=== PATIENT | female | born 1945 | race Caucasian/White ===

== ENCOUNTER 2017-02-26 10:09 | Outpatient (CLI) | payer MEDICARE, OTHER ==
[2017-02-26 19:21] LABS: ALBUMIN/GLOBULIN RATIO 1.8 (1.0-2.2); BILIRUBIN,TOTAL 1.1 mg/dL (0.2-1.0); CALCIUM 9.9 mg/dL (8.5-10.3); CREATININE 0.6 mg/dL (0.4-1.0); POTASSIUM 4.2 mmol/L (3.5-5.0); TOTAL PROTEIN 7.2 g/dL (6.7-8.2)
[2017-02-26 20:48] LABS: HEMOGLOBIN A1C 0.52 g/dL
== END 2017-02-26 10:10 | disposition home or self-care (01) ==
LOC: LAB.F 10:09
PROVIDERS: ATTEND Physician Assistant Medical
DX: I10 Essential (primary) hypertension (principal); E11.9 Type 2 diabetes mellitus without complications
CPT/HCPCS: 36415; 80053; 83036

== ENCOUNTER 2018-03-09 06:38 | Emergency (ER) | payer MEDICARE, OTHER ==
[2018-03-09 06:46] VITALS: BP 183/75
[2018-03-09 07:09] LABS: BILIRUBIN,URINE NEGATIVE (NEGATIVE); GLUCOSE, URINE (UA) NEGATIVE (NEGATIVE); KETONES,URINE (UA) NEGATIVE (NEGATIVE); LEUKOCYTE ESTERASE, URINE TRACE (NEGATIVE); NITRITE,URINE NEGATIVE (NEGATIVE); OCCULT BLOOD,URINE LARGE (NEGATIVE); PH,URINE 6.5 PH (5.0-7.5); PROTEIN,URINE >=300 mg/dL (NEGATIVE); UROBILINOGEN,URINE 1 (NORMAL) E.U./dL (NORMAL)
[2018-03-09 07:24] LABS: CLARITY,URINE SL. CLOUDY (CLEAR)
--- NOTE | 2018-03-09 07:26 | ED Physician Documentation ---
History of Present Illness - Stated complaint Stated Complaint: FEMALE - Chief complaint Chief Complaint: Abd Pain - Additonal information Additional information: 72 female to ED with dysuria urgency and hemturia with clots able to urinate no vag or rectal bleed no fever chills no NV no abd pain no flank pain atenolol lisinopril HCTZ statin asa metformin prior surgery childbirth and D&C Review of Systems Constitutional: denies: Fever, Chills Cardiac: denies: Chest pain / pressure Respiratory: denies: Dyspnea GI: denies: Abdominal Pain, Nausea, Vomiting, Bloody / black stool : reports: Hematuria. denies: Dysuria, Frequency, Vaginal bleeding Musculoskeletal: denies: Back pain Endocrine: denies: Easy bruising / bleeding Immunocompromised: denies: Immunocompromised PD PAST MEDICAL HISTORY - Present Medications Home Medications: Ambulatory Orders Medication Instructions Recorded Confirmed Cephalexin [Keflex] 500 mg PO Q6H #28 capsule 03/09/18 Phenazopyridine [Pyridium] 100 mg PO Q8H PRN #9 tablet 03/09/18 - Allergies Allergies/Adverse Reactions: Allergies Allergy/AdvReac Type Severity Reaction Status Date / Time mold AdvReac Unknown Verified 03/09/18 06:46 PD ED PE NORMAL - Vitals Vital signs reviewed: Yes - General General: Alert and oriented X 3 - Cardiac Cardiac: RRR - Respiratory Respiratory: No respiratory distress, Clear bilaterally - Abdomen Abdomen: Soft, Non tender - Back Back: No CVA TTP - Derm Derm: Normal color - Neuro Neuro: Alert and oriented X 3 Results - Vitals Vitals: Vital Signs - 24 hr 03/09/18 06:45 Temperature 36.5 C Heart Rate 68 Respiratory 17 Rate Blood Pressure 183/75 H O2 Saturation 96 Oxygen O2 Source Room air - Labs Labs: Laboratory Tests 03/09/18 06:52 Urine Color RED/BLOODY Urine Clarity SL. CLOUDY Urine pH 6.5 Ur Specific [place] 1.020 Urine Protein >=300 H Urine Glucose (UA) NEGATIVE Urine Ketones NEGATIVE Urine Occult Blood LARGE H Urine Nitrite NEGATIVE Urine Bilirubin NEGATIVE Urine Urobilinogen 1 (NORMAL) Ur Leukocyte Esterase TRACE H Urine RBC TNTC H Urine WBC >25 H Ur Squamous Epith Cells RARE Squamous Urine Bacteria None Seen Ur Microscopic Review INDICATED Urine Culture Comments INDICATED PD MEDICAL DECISION MAKING - ED course ED course: UA + blood, leuk est, WBC but not bacteria d/w pt that this could be infectious given the WBC and I will rx antibiotics but that the amt of blood and lack of bacteria seen so far are concerning and she may need further work up such as imaging and referral to urology for cystoscopy to ruole out bladder cancer offered to get imaging such as CT or sono today pt prefers to fup PMD for this work up will tx with ab now but emphasized to pt that very close fup for rpt urine after ab is essential and I recommend further wup as above - Sepsis Event Vital Signs: Vital Signs - 24 hr 03/09/18 06:45 Temperature 36.5 C Heart Rate 68 Respiratory 17 Rate Blood Pressure 183/75 H O2 Saturation 96 Oxygen O2 Source Room air Departure - Departure Disposition: Home, Self Care Clinical Impression: Hematuria Qualifiers: Hematuria type: gross Qualified Code(s): R31.0 - Gross hematuria Condition: Good Instructions: ED Hematuria, Hematuria Poss Causes Prescriptions: Cephalexin [Keflex] 500 mg PO Q6H #28 capsule Phenazopyridine [Pyridium] 100 mg PO Q8H PRN #9 tablet PRN Reason: painful urination Comments: There was a lot of blood in the urine. A culture is being run to determine if there is actually an infection We discussed my concerns about other causes of blood in the urine including cancer I think you need further work up such as imaging of your kidneys and bladder and a referral to urology to get a scope of your bladder We decided to treat for a possible infection for today but your promised to follow up with your PMD for further work up. Take the medications as prescribed Call your PMD office Sunday to get an appointment next week. Return to the ER of worse in the meantime as we discussed
[2018-03-09 07:51] LABS: BACTERIA,URINE None Seen /HPF (None Seen); RBC,URINE TNTC /HPF (0-5); SQUAMOUS EPITHELIAL CELL,UR RARE Squamous (<= Few)
[2018-03-09] MEDS ORDERED: PHENAZOPYRIDINE 100 MG TABLET PO STA (08:31)
[2018-03-09] MEDS ORDERED: cephALEXin 250 MG CAPSULE PO STA (08:31)
== END 2018-03-09 08:40 | disposition home or self-care (01) ==
LOC: ED 06:38
DX: R31.0 Gross hematuria (principal)
CPT/HCPCS: 81001; 87077; 87086; 87181; 99283; A9270; 81003

== ENCOUNTER 2018-03-21 07:14 | Outpatient (CLI) | payer MEDICARE, OTHER ==
[2018-03-21 12:03] LABS: BASOPHILS # (AUTO) 0.1 10^3/uL (0.0-0.1); BASOPHILS % (AUTO) 0.8 %; EOSINOPHILS # (AUTO) 0.2 10^3/uL (0.0-0.7); EOSINOPHILS % (AUTO) 2.6 %; HGB - HEMOGLOBIN 13.1 g/dL (12.0-16.0); LYMPHOCYTES # (AUTO) 2.1 10^3/uL (1.5-3.5); LYMPHOCYTES % (AUTO) 27.5 %; MEAN CORPUSCULAR HEMOGLOBIN 30.9 pg (27.0-31.0); MEAN CORPUSCULAR HGB CONC 33.6 g/dL (32.0-36.0); MEAN CORPUSCULAR VOLUME 92.1 fL (81.0-99.0); MEAN PLATELET VOLUME 7.3 fL (7.9-10.8); MONOCYTES # (AUTO) 0.6 10^3/uL (0.0-1.0); MONOCYTES % (AUTO) 8.1 %; NEUTROPHILS # (AUTO) 4.8 10^3/uL (1.5-6.6); PLT - PLATELET COUNT 323 10^3/uL (130-450); RED BLOOD COUNT 4.23 10^6/uL (4.20-5.40); RED CELL DISTRIBUTION WIDTH 13.4 % (12.0-15.0); WHITE BLOOD COUNT 7.8 x10^3/uL (4.8-10.8)
[2018-03-21 12:22] LABS: ALBUMIN/GLOBULIN RATIO 1.2 (1.0-2.2); ALKALINE PHOSPHATASE 61 IU/L (42-121); ALT ALANINE AMINOTRANSFERASE 24 IU/L (10-60); AST ASPARTATE AMINOTRANSFERASE 24 IU/L (10-42); BILIRUBIN,TOTAL 1.1 mg/dL (0.2-1.0); BUN - BLOOD UREA NITROGEN 10 mg/dL (6-20); CALCIUM 9.2 mg/dL (8.5-10.3); CARBON DIOXIDE - CO2 28 mmol/L (21-32); CHLORIDE 95 mmol/L (101-111); CHOL/HDL RATIO 3.4 (<4.4); CHOLESTEROL 149 mg/dL; CREATININE 0.5 mg/dL (0.4-1.0); GFR - MDRD 121 (>89); GLUCOSE 97 mg/dL (70-100); HDL CHOLESTEROL 44 mg/dL; LDL CHOLESTEROL,CALCULATED 74 mg/dL; LDL/HDL RATIO 1.7 (<4.4); SODIUM 132 mmol/L (135-145); TOTAL PROTEIN 7.4 g/dL (6.7-8.2); VLDL CHOLESTEROL 31 mg/dL
[2018-03-21 12:39] LABS: HB2 TOTAL 14.6 g/dL; HEMOGLOBIN A1C 0.58 g/dL; HEMOGLOBIN A1C % 5.8 % (4.6-6.2)
== END 2018-03-21 07:15 | disposition home or self-care (01) ==
LOC: LAB.F 07:14
PROVIDERS: ATTEND Physician Assistant Medical
DX: I10 Essential (primary) hypertension (principal); E11.9 Type 2 diabetes mellitus without complications; E78.5 Hyperlipidemia, unspecified
CPT/HCPCS: 36415; 80053; 80061; 82043; 83036; 83721; 85025

== ENCOUNTER 2018-06-25 07:30 | Outpatient (CLI) | payer MEDICARE, OTHER ==
[2018-06-25 11:37] LABS: HEMOGLOBIN A1C 0.64 g/dL; HEMOGLOBIN A1C % 6.3 % (4.6-6.2)
[2018-06-25 11:45] LABS: CHOL/HDL RATIO 3.5 (<4.4); CHOLESTEROL 159 mg/dL; HDL CHOLESTEROL 45 mg/dL; LDL CHOLESTEROL,CALCULATED 74 mg/dL; LDL/HDL RATIO 1.6 (<4.4); VLDL CHOLESTEROL 40 mg/dL
== END 2018-06-25 07:31 | disposition home or self-care (01) ==
LOC: LAB.F 07:30
PROVIDERS: ATTEND Physician Assistant Medical
DX: E11.9 Type 2 diabetes mellitus without complications (principal); E78.5 Hyperlipidemia, unspecified
CPT/HCPCS: 36415; 80061; 83036; 83721

== ENCOUNTER 2019-02-11 07:26 | Outpatient (CLI) | payer MEDICARE, OTHER ==
[2019-02-11 10:35] LABS: CHOL/HDL RATIO 3.9 (<4.4); CHOLESTEROL 172 mg/dL; HDL CHOLESTEROL 44 mg/dL; LDL CHOLESTEROL,CALCULATED 95 mg/dL; LDL/HDL RATIO 2.2 (<4.4); VLDL CHOLESTEROL 33 mg/dL
[2019-02-11 10:43] LABS: HB2 TOTAL 14.8 g/dL; HEMOGLOBIN A1C 0.71 g/dL; HEMOGLOBIN A1C % 6.5 % (4.6-6.2)
== END 2019-02-11 07:27 | disposition home or self-care (01) ==
LOC: LAB.F 07:26
PROVIDERS: ATTEND Physician Assistant Medical
DX: E78.5 Hyperlipidemia, unspecified (principal); E11.9 Type 2 diabetes mellitus without complications
CPT/HCPCS: 36415; 80061; 82043; 83036; 83721

== ENCOUNTER 2019-03-25 08:09 | Outpatient (CLI) | payer MEDICARE, OTHER ==
--- NOTE | 2019-03-26 09:50 | Mammography Report ---
Reason: SCREENING MAMMO Procedure Date: 03/25/2019 Accession Number: [id number] / [id number] Procedure: ZEENAT - Screening Mammo w/Memo CPT Code: FULL RESULT: EXAM: Screening Mammo w/Memo DATE: 03/25/2019 8:54 AM CLINICAL HISTORY: Screening encounter. History of early menses. Family history of breast cancer in a paternal aunt at the age of 65. TECHNIQUE: (B) - Bilateral CC and MLO views were obtained. COMPARISON: None PARENCHYMAL PATTERN: (A) - The breast(s) demonstrate(s) scattered fibroglandular densities. FINDINGS: A well-circumscribed hyperdense ovoid 5 mm nodule along the surface of the upper outer right breast, 16 cm from the nipple is felt to represent the skin finding, typically benign. There are no suspicious masses, calcifications, or areas of distortion. IMPRESSION: Benign findings. BI-RADS category 2. RECOMMENDATION: (ANNUAL) - Recommend routine annual screening mammography. BI-RADS CATEGORY: (2) - Benign Findings. STANDARD QUALIFYING STATEMENTS: 1. This examination was not reviewed with the aid of Computer-Aided Detection (CAD). 2. A negative or benign imaging report should not preclude biopsy if clinically suspicious findings are present. 3. Dense breasts may obscure an underlying neoplasm. 4. This examination was reviewed with the aid of 3D breast imaging (tomosynthesis).
== END 2019-03-25 08:10 | disposition home or self-care (01) ==
LOC: DI 08:09
PROVIDERS: ATTEND Physician Assistant Medical
DX: Z12.31 Encounter for screening mammogram for malignant neoplasm of breast (principal); Z80.3 Family history of malignant neoplasm of breast
CPT/HCPCS: 77063; 77067

== ENCOUNTER 2019-03-25 08:13 | Outpatient (CLI) | payer MEDICARE, OTHER ==
--- NOTE | 2019-03-26 10:19 | DEXA Report ---
Reason: POSTMENOPAUSAL STATUS Procedure Date: 03/25/2019 Accession Number: [id number] / [id number] Procedure: DEX - Dexa Spine and/or Hip CPT Code: FULL RESULT: EXAM: Dexa Spine and/or Hip DATE: 03/25/2019 8:56 AM CLINICAL HISTORY: POSTMENOPAUSAL STATUS TECHNIQUE: Dual energy x-ray absorptiometry (DXA) was performed on a [employer] System. Regions measured are the AP Spine, femoral neck, and if needed forearm. COMPARISON: None. In accordance with the International Society for Clinical Densitometry (ISCD) guidelines, data from previous exams may be reanalyzed using current recommendations and techniques. This is done to allow a more accurate basis for comparison with the current study. FINDINGS: The data for the lumbar spine is as follows: BMD (g/cm/cm) T-SCORE Z-SCORE REGION L1 0.942 -1.6 -0.8 L2 0.994 -1.7 -1.0 L3 1.086 -1.0 -0.2 L4 1.052 -1.2 -0.5 TOTAL 1.025 -1.3 -0.5 NOTE: All evaluable vertebrae are used for classification The data for the hip is as follows: BMD (g/cm/cm) T-SCORE Z-SCORE REGION Neck 0.848 -1.4 -0.2 TOTAL 0.909 -0.8 0.2 NOTE: The femoral neck or total proximal femur, whichever is lowest, is used for classification. IMPRESSION: THE WHO CLASSIFICATION BASED ON THE INTERNATIONAL REFERENCE STANDARD IS OSTEOPENIA. THE FRACTURE RISK IS INCREASED. RECOMMENDATION: Patients with diagnosis of osteoporosis or osteopenia should have regular bone mineral density assessment. For those eligible for Medicare, routine testing is allowed once every 2 years. Testing frequency can be increased for patients who have rapidly progressing disease or for those who are receiving medical therapy to restore bone mass. COMMENT: World Health Organization (WHO) definitions for osteoporosis and osteopenia: NORMAL BMD: T-score at -1.0 or higher, fracture risk is low OSTEOPENIA BMD: T-score between -1.0 and -2.5, fracture risk is increased. OSTEOPOROSIS BMD: T-score at -2.5 or lower, fracture risk is high. National Osteoporosis Foundation recommends: 1. Obtain adequate dietary calcium (at least 1200 mg per day) and vitamin D (400-800 international units per day). 2. Participate, as appropriate, in regular weightbearing and muscle-strengthening exercise. 3. Avoid tobacco use and reduce alcohol and caffeine intake. 4. For more detailed information see the website at www.NOF.org.
== END 2019-03-25 08:14 | disposition home or self-care (01) ==
LOC: DI 08:13
PROVIDERS: ATTEND Physician Assistant Medical
DX: M85.89 Other specified disorders of bone density and structure, multiple sites (principal); Z78.0 Asymptomatic menopausal state
CPT/HCPCS: 77080

== ENCOUNTER 2019-06-20 07:01 | Outpatient (CLI) | payer MEDICARE, OTHER ==
[2019-06-20 10:11] LABS: BASOPHILS # (AUTO) 0.1 10^3/uL (0.0-0.1); BASOPHILS % (AUTO) 0.7 %; EOSINOPHILS # (AUTO) 0.2 10^3/uL (0.0-0.7); EOSINOPHILS % (AUTO) 2.8 %; HGB - HEMOGLOBIN 13.3 g/dL (12.0-16.0); LYMPHOCYTES # (AUTO) 1.8 10^3/uL (1.5-3.5); LYMPHOCYTES % (AUTO) 25.8 %; MEAN CORPUSCULAR HEMOGLOBIN 31.2 pg (27.0-31.0); MEAN CORPUSCULAR HGB CONC 33.2 g/dL (32.0-36.0); MEAN CORPUSCULAR VOLUME 94.1 fL (81.0-99.0); MEAN PLATELET VOLUME 9.2 fL (7.9-10.8); MONOCYTES # (AUTO) 0.8 10^3/uL (0.0-1.0); MONOCYTES % (AUTO) 10.7 %; NEUTROPHILS # (AUTO) 4.2 10^3/uL (1.5-6.6); NEUTROPHILS % (AUTO) 59.9 %; PLT - PLATELET COUNT 288 10^3/uL (130-450); RED BLOOD COUNT 4.26 10^6/uL (4.20-5.40); RED CELL DISTRIBUTION WIDTH 12.6 % (12.0-15.0); WHITE BLOOD COUNT 7.1 x10^3/uL (4.8-10.8)
[2019-06-20 10:20] LABS: ALBUMIN 4.2 g/dL (3.2-5.5); ALBUMIN/GLOBULIN RATIO 1.3 (1.0-2.2); BILIRUBIN,TOTAL 1.2 mg/dL (0.2-1.0); CALCIUM 9.3 mg/dL (8.5-10.3); CREATININE 0.6 mg/dL (0.4-1.0); TOTAL PROTEIN 7.4 g/dL (6.7-8.2)
== END 2019-06-20 07:02 | disposition home or self-care (01) ==
LOC: LAB.S 07:01
PROVIDERS: ATTEND Physician Assistant Medical
DX: Z51.81 Encounter for therapeutic drug level monitoring (principal)
CPT/HCPCS: 36415; 80053; 85025

== ENCOUNTER 2019-07-02 07:34 | Outpatient (CLI) | payer MEDICARE, OTHER ==
[2019-07-02 10:41] LABS: CREATININE,URINE 85.7 mg/dL; MICROALBUM/CREATININE RATIO,UR 44.3 ug/mg (<30.0); MICROALBUMIN,URINE 3.8 mg/dL (0-300.0)
[2019-07-02 10:55] LABS: HB2 TOTAL 14.3 g/dL; HEMOGLOBIN A1C 0.6 g/dL
== END 2019-07-02 07:35 | disposition home or self-care (01) ==
LOC: LAB.S 07:34
PROVIDERS: ATTEND Physician Assistant Medical
DX: E11.9 Type 2 diabetes mellitus without complications (principal)
CPT/HCPCS: 36415; 82043; 82570; 83036

== ENCOUNTER 2019-08-13 14:11 | Outpatient (CLI) | payer MEDICARE, OTHER | END 2019-08-13 23:59 | disposition home or self-care (01) | LOC: LAB.R 14:11 | PROVIDERS: ATTEND Physician Assistant Medical | DX: N39.0 Urinary tract infection, site not specified (principal); R31.9 Hematuria, unspecified | CPT/HCPCS: 87077; 87086; 87181 ==

== ENCOUNTER 2020-03-09 07:10 | Outpatient (CLI) | payer MEDICARE, OTHER ==
[2020-03-09 15:45] LABS: CALCIUM 9.4 mg/dL (8.5-10.3); CREATININE 0.7 mg/dL (0.4-1.0)
[2020-03-09 15:48] LABS: CREATININE,URINE 54.8 mg/dL; MICROALBUM/CREATININE RATIO,UR 21.9 ug/mg (<30.0); MICROALBUMIN,URINE 1.2 mg/dL (0-300.0)
[2020-03-09 16:10] LABS: HB2 TOTAL 14.4 g/dL; HEMOGLOBIN A1C 0.61 g/dL
== END 2020-03-09 07:11 | disposition home or self-care (01) ==
LOC: LAB.S 07:10
PROVIDERS: ATTEND Physician Assistant
DX: E11.9 Type 2 diabetes mellitus without complications (principal)
CPT/HCPCS: 36415; 80048; 82043; 82570; 83036

== ENCOUNTER 2020-09-29 07:12 | Outpatient (CLI) | payer MEDICARE, OTHER ==
[2020-09-29 16:14] LABS: BASOPHILS # (AUTO) 0.1 10^3/uL (0.0-0.1); BASOPHILS % (AUTO) 0.9 %; EOSINOPHILS # (AUTO) 0.2 10^3/uL (0.0-0.7); EOSINOPHILS % (AUTO) 2.5 %; HGB - HEMOGLOBIN 13.4 g/dL (12.0-16.0); LYMPHOCYTES # (AUTO) 2.2 10^3/uL (1.5-3.5); LYMPHOCYTES % (AUTO) 28.1 %; MEAN CORPUSCULAR HEMOGLOBIN 32.1 pg (27.0-31.0); MEAN CORPUSCULAR HGB CONC 33.1 g/dL (32.0-36.0); MEAN CORPUSCULAR VOLUME 96.9 fL (81.0-99.0); MEAN PLATELET VOLUME 9.6 fL (7.9-10.8); MONOCYTES # (AUTO) 0.7 10^3/uL (0.0-1.0); MONOCYTES % (AUTO) 8.6 %; NEUTROPHILS # (AUTO) 4.7 10^3/uL (1.5-6.6); NEUTROPHILS % (AUTO) 59.5 %; PLT - PLATELET COUNT 322 10^3/uL (130-450); RED BLOOD COUNT 4.18 10^6/uL (4.20-5.40); RED CELL DISTRIBUTION WIDTH 12.5 % (12.0-15.0)
[2020-09-29 16:45] LABS: ALBUMIN 4.5 g/dL (3.2-5.5); ALBUMIN/GLOBULIN RATIO 1.6 (1.0-2.2); ALKALINE PHOSPHATASE 50 IU/L (42-121); ALT ALANINE AMINOTRANSFERASE 19 IU/L (10-60); AST ASPARTATE AMINOTRANSFERASE 19 IU/L (10-42); BILIRUBIN,TOTAL 1.4 mg/dL (0.2-1.0); BUN - BLOOD UREA NITROGEN 17 mg/dL (6-20); CALCIUM 9.4 mg/dL (8.5-10.3); CARBON DIOXIDE - CO2 26 mmol/L (21-32); CHLORIDE 98 mmol/L (101-111); CHOL/HDL RATIO 3.7 (<4.4); CHOLESTEROL 160 mg/dL; CREATININE 0.6 mg/dL (0.4-1.0); GLUCOSE 107 mg/dL (70-100); HDL CHOLESTEROL 43 mg/dL; LDL CHOLESTEROL,CALCULATED 78 mg/dL; LDL/HDL RATIO 1.8 (<4.4); SODIUM 133 mmol/L (135-145); TOTAL PROTEIN 7.4 g/dL (6.7-8.2); VLDL CHOLESTEROL 39 mg/dL
[2020-09-29 17:19] LABS: CREATININE,URINE 56.7 mg/dL; MICROALBUM/CREATININE RATIO,UR 33.5 ug/mg (<30.0); MICROALBUMIN,URINE 1.9 mg/dL (0-300.0)
== END 2020-09-29 07:13 | disposition home or self-care (01) ==
LOC: LAB.S 07:12
PROVIDERS: ATTEND Registered Nurse
DX: I10 Essential (primary) hypertension (principal); E78.5 Hyperlipidemia, unspecified; E11.9 Type 2 diabetes mellitus without complications; Z51.81 Encounter for therapeutic drug level monitoring; K76.0 Fatty (change of) liver, not elsewhere classified; E66.01 Morbid (severe) obesity due to excess calories
CPT/HCPCS: 36415; 80053; 80061; 82043; 82570; 83036; 83721; 84443; 85025

== ENCOUNTER 2020-09-30 14:20 | Outpatient (CLI) | payer MEDICARE, OTHER | END 2020-09-30 23:59 | disposition home or self-care (01) | LOC: LAB.S 14:20 | PROVIDERS: ATTEND Physician Assistant | DX: R39.15 Urgency of urination (principal) | CPT/HCPCS: 87086 ==

== ENCOUNTER 2020-10-01 08:00 | Outpatient (CLI) | payer MEDICARE, OTHER ==
[2020-10-01 20:39] LABS: BILIRUBIN,URINE NEGATIVE (NEGATIVE); GLUCOSE, URINE (UA) NEGATIVE (NEGATIVE); KETONES,URINE (UA) NEGATIVE (NEGATIVE); LEUKOCYTE ESTERASE, URINE MODERATE (NEGATIVE); NITRITE,URINE POSITIVE (NEGATIVE); OCCULT BLOOD,URINE LARGE (NEGATIVE); PROTEIN,URINE 100 mg/dL (NEGATIVE); UROBILINOGEN,URINE 1 (NORMAL) E.U./dL (NORMAL)
[2020-10-01 20:40] LABS: CLARITY,URINE CLOUDY (CLEAR)
[2020-10-01 21:06] LABS: BACTERIA,URINE Rare /HPF (None Seen); RBC,URINE TNTC /HPF (0-5); SQUAMOUS EPITHELIAL CELL,UR NONE SEEN (<= Few)
== END 2020-10-01 23:59 | disposition home or self-care (01) ==
LOC: LAB.R 08:00
PROVIDERS: ATTEND Emergency Medicine
DX: R39.15 Urgency of urination (principal)
CPT/HCPCS: 81001; 87086

== ENCOUNTER 2020-12-28 19:56 | Emergency (ER) | payer MEDICARE, OTHER ==
[2020-12-28] MEDS ORDERED: ACETAMINOPHEN 325 MG TABLET PO STA (20:25)
--- NOTE | 2020-12-28 20:49 | ED Physician Documentation ---
PD HPI HEAD INJURY - Stated complaint Stated Complaint: GLF/HEAD INJURY - Chief complaint Chief Complaint: Trauma Hd/Nk - History obtained from History obtained from: Patient - History of Present Illness Mechanism of head injury: Fell Pain level max: 2 Pain level now: 1 Location of injury: Back Quality of pain: Pain, Aching Associated symptoms: No: AMS, Amnesia, Nausea / vomiting, Neck pain, Paresthesias, Seizures, Ear drainage, Nasal drainage Contributing factors: No: Anticoagulated, Intoxicated - Additional information Additional information: Patient is a 75-year-old female who presents to the emergency department after a ground-level fall today. 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 Unsure if she lost consciousness or not. Rates the pain as a 2 out of 10 at max. Pain is in the back of the head. Nothing makes it better or worse. Not anticoagulated. Review of Systems Ten Systems: 10 systems reviewed and negative Constitutional: denies: Fever, Chills Nose: denies: Rhinorrhea / runny nose, Congestion Throat: denies: Sore throat Cardiac: denies: Chest pain / pressure Respiratory: denies: Dyspnea, Cough, Wheezing GI: denies: Abdominal Pain, Nausea, Vomiting Skin: denies: Rash Musculoskeletal: denies: Neck pain, Back pain Neurologic: reports: Head injury. denies: Focal weakness, Numbness, Seizure, Confused, Altered mental status PD PAST MEDICAL HISTORY - Past Medical History Past Medical History: Yes Cardiovascular: Hypertension, High cholesterol Respiratory: None Neuro: None Endocrine/Autoimmune: Type 2 diabetes GI: None WAREHOUSE ORDER PICKER: None : None HEENT: None Psych: None Musculoskeletal: None Derm: None - Past Surgical History Past Surgical History: Yes /WAREHOUSE ORDER PICKER: Tubal ligation - Present Medications Home Medications: Ambulatory Orders Medication Instructions Recorded Confirmed Hydrochlorothiazide 25 mg PO DAILY 12/28/20 12/28/20 Lisinopril [Zestril] 30 mg PO DAILY 12/28/20 12/28/20 Metoprolol Succinate [Kapspargo 100 mg PO DAILY 12/28/20 12/28/20 Sprinkle] Simvastatin [Zocor] 40 mg PO BID 12/28/20 12/28/20 metFORMIN [Glucophage] 1,000 mg PO DAILY 12/28/20 12/28/20 - Allergies Allergies/Adverse Reactions: Allergies Allergy/AdvReac Type Severity Reaction Status Date / Time mold AdvReac Unknown Verified 03/09/18 06:46 - Social History Does the pt smoke?: No Smoking Status: Former smoker Does the pt drink ETOH?: Yes Does the pt have substance abuse?: No - Immunizations Immunizations are current?: Yes - POLST Patient has POLST: No PD ED PE NORMAL - Vitals Vital signs reviewed: Yes - General General: Alert and oriented X 3, No acute distress, Well developed/nourished - HEENT HEENT: PERRL, Moist mucous membranes, Other (Large right posterior scalp hematoma. No active bleeding. No laceration. No palpable skull fractures.) - Neck Neck: Supple, no meningeal sign, No bony TTP - Cardiac Cardiac: RRR, Strong equal pulses - Respiratory Respiratory: No respiratory distress, Clear bilaterally - Abdomen Abdomen: Soft, Non tender, Non distended - Back Back: No spinal TTP - Derm Derm: Warm and dry - Extremities Extremities: No deformity, No tenderness to palpate, Normal ROM s pain - Neuro Neuro: Alert and oriented X 3, field crew chief 2-12 intact, No motor deficit, No sensory deficit, Normal speech - Psych Psych: Normal mood, Normal affect Results - Vitals Vitals: Oxygen O2 Source Room air - Rads (name of study) head CT Radiology: Prelim report reviewed, EMP read contemporaneously, See rad report PD MEDICAL DECISION MAKING - ED course Complexity details: reviewed results, re-evaluated patient, considered differential, d/w patient ED course: 75-year-old female with a mechanical trip and fall today. No acute findings on head CT. No tenderness over the neck. No neurological deficits. Not on anticoagulants. We will have her follow-up with her doctor for further care. Head injury instructions given at bedside. Patient counseled regarding signs and symptoms for which I believe and urgent re-evaluation would be necessary. Patient with good understanding of and agreement to plan and is comfortable going home at this time This document was made in part using voice recognition software. While efforts are made to proofread this document, sound alike and grammatical errors may occur. IMPRESSION: 1. No acute intracranial process. 2. Moderate atrophy and chronic microvascular ischemic changes. 3. Right posterior frontoparietal scalp hematoma. Departure - Departure Disposition: 01 Home, Self Care Clinical Impression: Closed head injury Qualifiers: Encounter type: initial encounter Qualified Code(s): S09.90XA - Unspecified injury of head, initial encounter Condition: Good Instructions: ED Head Injury Closed Follow-Up: Rema Choudhury ARNP [Primary Care Provider] - Within 1 week Comments: Your head CT does not show any acute abnormalities tonight. Follow-up with your doctor in 1 week for recheck. Return if you worsen. Discharge Date/Time: 12/28/20 21:40
--- NOTE | 2020-12-28 21:18 | CT Report ---
PROCEDURE: HEAD WO INDICATIONS: fall, head injury TECHNIQUE: Noncontrast 4.5 mm thick angled axial sections acquired from the foramen magnum to the vertex. For r adiation dose reduction, the following was used: automated exposure control, adjustment of mA and/or kV according to patient size. COMPARISON: None. FINDINGS: Image quality: Excellent. The ventricular system and cortical sulci demonstrate atrophy, consistent for patient's stated age. There are areas of hypodensity in the periventricular and subcortical white matter. There is no acut e intra or extra-axial fluid collection. No acute hemorrhage, mass lesion or midline shift. Brainst em is unremarkable. Globes are symmetrical. Sinuses are aerated. Osseous structures are intact. Right posterior frontopar ietal scalp hematoma is present. IMPRESSION: 1. No acute intracranial process. 2. Moderate atrophy and chronic microvascular ischemic changes. 3. Right posterior frontoparietal scalp hematoma. Reviewed by: Ghazala Knapp MD on 12/28/2020 9:16 PM PDT Approved by: Ghazala Knapp MD on 12/28/2020 9:16 PM PDT Station ID: [id number]
[2020-12-28 21:37] VITALS: BP 162/75
== END 2020-12-28 21:40 | disposition home or self-care (01) ==
LOC: ED 19:56
DX: S09.90XA Unspecified injury of head, initial encounter (principal); S00.03XA Contusion of scalp, initial encounter; W01.0XXA Fall on same level from slipping, tripping and stumbling without subsequent striking against object, initial encounter; Y93.89 Activity, other specified; I10 Essential (primary) hypertension; E11.9 Type 2 diabetes mellitus without complications; Z79.84 Long term (current) use of oral hypoglycemic drugs; Z87.891 Personal history of nicotine dependence
CPT/HCPCS: 70450; 99282; 99284; A9270

== ENCOUNTER 2021-05-03 07:09 | Outpatient (CLI) | payer MEDICARE, OTHER ==
[2021-05-03 16:05] LABS: CALCIUM 9.6 mg/dL (8.5-10.3); CREATININE 0.6 mg/dL (0.4-1.0)
[2021-05-03 16:20] LABS: CREATININE,URINE 66.9 mg/dL; MICROALBUM/CREATININE RATIO,UR 74.7 ug/mg (<30.0)
[2021-05-03 19:44] LABS: ESTIMATED AVERAGE GLUCOSE 128 mg/dL (70-100); HEMOGLOBIN A1c% 6.1 % (4.27-6.07)
== END 2021-05-03 07:10 | disposition home or self-care (01) ==
LOC: LAB.S 07:09
PROVIDERS: ATTEND Registered Nurse
DX: I10 Essential (primary) hypertension (principal); E78.5 Hyperlipidemia, unspecified; E11.9 Type 2 diabetes mellitus without complications
CPT/HCPCS: 36415; 80048; 82043; 82570; 83036

== ENCOUNTER 2021-06-11 08:03 | Outpatient (CLI) | payer MEDICARE, OTHER ==
--- NOTE | 2021-06-11 09:01 | Ultrasound Report ---
PROCEDURE: Abdomen Complete INDICATIONS: RUQ ABDOMINAL PAIN, ABN STOOL FINDING TECHNIQUE: Real-time scanning was performed of the abdominal and retroperitoneal organs, with image documentatio n. COMPARISON: None. FINDINGS: Liver: Liver is normal in size and homogeneous in echotexture. Mild increased echogenicity without focal mass lesion Gallbladder: Small shadowing calculi noted. No gallbladder wall thickening, pericholecystic cholecyst ic fluid or Siegel's sign present. Biliary ducts: Intrahepatic bile ducts are non-dilated. Extrahepatic bile duct caliber measures 6 m m. Normal is 6-7 mm or less in diameter, or 10 mm or less post-cholecystectomy. Pancreas: Visualized portions of the pancreas are sonographically normal. Spleen: Spleen is normal in size and homogeneous in echotexture. Kidneys: Kidneys are normal in size and echotexture. Right kidney measures 13.1 cm long; left kidne y measures 12.9 cm long. No hydronephrosis or nephrolithiasis. No solid masses. Several renal simp le cysts noted. Largest on the right measures 2.1 cm, largest on the left measures 1.2 cm it. Aorta: Visualized aorta is normal in caliber at less than 3 cm. Atherosclerotic plaque noted. Iliacs: Proximal common iliac arteries are normal in caliber at less than 2.5 cm. IVC: Intrahepatic inferior vena cava is patent. Miscellaneous: No free abdominal fluid. IMPRESSION: 1. Cholelithiasis without ultrasound evidence of acute cholecystitis. 2. Bilateral renal cysts without renal calculi or hydronephrosis. Reviewed by: Boris Valdez MD on 06/11/2021 8:00 AM VICKI Approved by: Boris Valdez MD on 06/11/2021 8:00 AM VICKI Station ID: [id number]
== END 2021-06-11 08:04 | disposition home or self-care (01) ==
LOC: DI 08:03
PROVIDERS: ATTEND Registered Nurse
DX: K80.20 Calculus of gallbladder without cholecystitis without obstruction (principal); N28.1 Cyst of kidney, acquired

== ENCOUNTER 2021-10-28 16:02 | Emergency (ER) | payer MEDICARE, OTHER ==
[2021-10-28 17:08] LABS: BASOPHILS % (AUTO) 0.4 %; EOSINOPHILS # (AUTO) 0.1 10^3/uL (0.0-0.7); EOSINOPHILS % (AUTO) 1.3 %; HCT - HEMATOCRIT 38.6 % (37.0-47.0); HGB - HEMOGLOBIN 13.2 g/dL (12.0-16.0); LYMPHOCYTES # (AUTO) 1.6 10^3/uL (1.5-3.5); LYMPHOCYTES % (AUTO) 16.7 %; MEAN CORPUSCULAR HEMOGLOBIN 31.1 pg (27.0-31.0); MEAN CORPUSCULAR HGB CONC 34.2 g/dL (32.0-36.0); MEAN PLATELET VOLUME 8.8 fL (7.9-10.8); MONOCYTES # (AUTO) 0.8 10^3/uL (0.0-1.0); MONOCYTES % (AUTO) 7.8 %; NEUTROPHILS # (AUTO) 7.1 10^3/uL (1.5-6.6); NEUTROPHILS % (AUTO) 73.5 %; PLT - PLATELET COUNT 317 10^3/uL (130-450); RED BLOOD COUNT 4.24 10^6/uL (4.20-5.40); RED CELL DISTRIBUTION WIDTH 12.4 % (12.0-15.0); WHITE BLOOD COUNT 9.6 x10^3/uL (4.8-10.8)
[2021-10-28 17:23] LABS: ALBUMIN/GLOBULIN RATIO 1.3 (1.0-2.2); BILIRUBIN,TOTAL 1.1 mg/dL (0.2-1.0); CALCIUM 8.9 mg/dL (8.5-10.3); CREATININE 0.6 mg/dL (0.4-1.0); POTASSIUM 3.5 mmol/L (3.5-5.0); TOTAL PROTEIN 7.2 g/dL (6.7-8.2)
[2021-10-28 17:34] LABS: BILIRUBIN,URINE NEGATIVE (NEGATIVE); GLUCOSE, URINE (UA) NEGATIVE (NEGATIVE); KETONES,URINE (UA) 15 mg/dL (NEGATIVE); LEUKOCYTE ESTERASE, URINE NEGATIVE (NEGATIVE); NITRITE,URINE NEGATIVE (NEGATIVE); OCCULT BLOOD,URINE NEGATIVE (NEGATIVE); PROTEIN,URINE TRACE mg/dL (NEGATIVE); UROBILINOGEN,URINE 0.2 (NORMAL) E.U./dL (NORMAL)
[2021-10-28 17:35] LABS: CLARITY,URINE CLEAR (CLEAR)
[2021-10-28] MEDS ORDERED: IOVERSOL 320 100 ML VIAL IVP ONE ×2 (17:41→20:20)
--- NOTE | 2021-10-28 18:20 | CT Report ---
PROCEDURE: ANGIO HEAD W/WO INDICATIONS: altered mental status, now resolved CONTRAST: IV CONTRAST: Optiray 320 ml: 80 PO CONTRAST: *NO PO CONTRAST TECHNIQUE: Precontrast 4.5 mm thick angled axial sections acquired from the foramen magnum to the vertex. Afte r the administration of intravenous contrast, 1 mm thick sections acquired through the [place] of [place] is. Postcontrast 4.5 mm thick sections then re-acquired from the foramen magnum to the vertex. 3-di mensional hnqnjev-frkhxqxne-yepfmgidun (MIP) and/or volume rendering reformats were acquired of the c entral intracranial vasculature. For radiation dose reduction, the following was used: automated ex posure control, adjustment of mA and/or kV according to patient size. COMPARISON: CT head 12/28/2020 FINDINGS: Image quality: Excellent. Anterior circulation: Intracranial internal carotid arteries demonstrated mild calcified atheroscler otic plaque without hemodynamically significant stenosis. The flow within the paired anterior cerebr al arteries is normal and symmetric. The flow within the middle cerebral arteries is normal and symm etric. The anterior communicating artery is seen. No aneurysms are seen. Posterior circulation: Visualized portions of the vertebral arteries demonstrate normal caliber, and join to form a normal appearing basilar artery. No definite posteroinferior cerebellar artery is see n on either side, although the PICA territory appears to be supplied by dominant anteroinferior cereb ellar arteries. Flow within the posterior cerebral arteries is normal and symmetric. No aneurysms ar e seen. CSF spaces: Ventricles are symmetric in size and shape. Basal cisterns are patent. No extra-axial fluid collections. Brain: No midline shift. No acute hemorrhage or mass effect. Scattered hypodensities in the subcorti li periventricular white matter most commonly encountered in the setting of chronic microvascular is chemic changes. Skull and face: Calvarium and facial bones appear intact, without suspicious lesions. Sinuses: Visualized sinuses and mastoids are clear. IMPRESSION: 1.No acute intracranial abnormality. No hemodynamically significant intracranial arterial stenosis or occlusion. 2.Mild chronic microvascular ischemic changes. Reviewed by: Blane Constantino MD on 10/28/2021 6:19 PM PST Approved by: Blane Constantino MD on 10/28/2021 6:19 PM PST Station ID: [id number]
--- NOTE | 2021-10-28 18:21 | ED Physician Documentation ---
History of Present Illness - Stated complaint Stated Complaint: MEMORY LOSS - Chief complaint Chief Complaint: Neuro - History obtained from History obtained from: Patient, Friend (boss) - History of Present Illness Timing: Today Pain level max: 0 Pain level now: 0 - Additonal information Additional information: 75-year-old female was at work today when she began to have memory issues. Her boss states that the patient had difficulty forming new memories and remembering what tasks he was supposed to be working on. She states that this is highly unusual for the patient. The patient remained oriented to self. She knew her name, she could perform routine tasks such as driving. There were no focal neurological deficits. No speech difficulties. No trauma. No fevers. No chills. No headache. No chest pain. No shortness of breath. The episode lasted for about an hour. Currently asymptomatic. Has never had similar symptoms previously. Review of Systems Ten Systems: 10 systems reviewed and negative Constitutional: denies: Fever, Chills Ears: denies: Ear pain Nose: denies: Rhinorrhea / runny nose, Congestion GI: denies: Nausea, Vomiting, Diarrhea Skin: denies: Rash Musculoskeletal: denies: Neck pain, Back pain Neurologic: denies: Focal weakness, Numbness, Confused, LOC PD PAST MEDICAL HISTORY - Past Medical History Past Medical History: Yes Cardiovascular: Hypertension, High cholesterol Respiratory: None Neuro: None Endocrine/Autoimmune: Type 2 diabetes GI: None MACHINE CLEANER: None : None HEENT: None Psych: None Musculoskeletal: None Derm: None - Past Surgical History Past Surgical History: Yes /MACHINE CLEANER: Tubal ligation - Present Medications Home Medications: Ambulatory Orders Medication Instructions Recorded Confirmed Lisinopril [Zestril] 30 mg PO DAILY 12/28/20 12/28/20 Metoprolol Succinate [Kapspargo 100 mg PO DAILY 12/28/20 12/28/20 Sprinkle] Simvastatin [Zocor] 40 mg PO BID 12/28/20 12/28/20 hydroCHLOROthiazide 25 mg PO DAILY 12/28/20 12/28/20 [Hydrochlorothiazide] metFORMIN [Glucophage] 1,000 mg PO DAILY 12/28/20 12/28/20 - Allergies Allergies/Adverse Reactions: Allergies Allergy/AdvReac Type Severity Reaction Status Date / Time mold AdvReac Unknown Verified 10/28/21 16:13 - Social History Does the pt smoke?: No Smoking Status: Former smoker Does the pt drink ETOH?: Yes Does the pt have substance abuse?: No - Immunizations Immunizations are current?: Yes - POLST Patient has POLST: No PD ED PE NORMAL - Vitals Vital signs reviewed: Yes - General General: Alert and oriented X 3, No acute distress - HEENT HEENT: PERRL, Moist mucous membranes - Neck Neck: Supple, no meningeal sign - Cardiac Cardiac: RRR, Strong equal pulses - Respiratory Respiratory: No respiratory distress, Clear bilaterally - Abdomen Abdomen: Soft, Non tender, Non distended - Derm Derm: Warm and dry - Extremities Extremities: No edema, No calf tenderness / cord - Neuro Neuro: Alert and oriented X 3, 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, No motor deficit, No sensory deficit, Normal speech Eye Opening: Spontaneous Motor: Obeys Commands Verbal: Oriented GCS Score: 15 - Psych Psych: Normal mood, Normal affect Results - Vitals Vitals: Vital Signs - 24 hr 10/28/21 10/28/21 10/28/21 16:05 16:24 16:55 Temperature 36.3 C L Heart Rate 66 64 63 Respiratory 16 15 15 Rate Blood Pressure 146/88 H 144/75 H 136/73 H O2 Saturation 99 98 97 10/28/21 10/28/21 10/28/21 18:07 18:30 19:46 Temperature Heart Rate 70 66 63 Respiratory 11 L 13 16 Rate Blood Pressure 113/50 L 122/53 L O2 Saturation 98 97 97 10/28/21 10/28/21 20:15 20:21 Temperature 37 C Heart Rate 70 68 Respiratory 14 14 Rate Blood Pressure 117/66 O2 Saturation 98 98 Oxygen O2 Source Room air - EKG (time done) 1722 Rate: Rate (enter#) (67) Rhythm: NSR [place]: Normal Intervals: Normal IN QRS: Normal, LVH Ischemia: Non specific changes - Labs Labs: Laboratory Tests 10/28/21 10/28/21 10/28/21 16:55 16:55 17:26 WBC 9.6 RBC 4.24 Hgb 13.2 Hct 38.6 MCV 91.0 MCH 31.1 H MCHC 34.2 RDW 12.4 Plt Count 317 MPV 8.8 Neut # (Auto) 7.1 H Lymph # (Auto) 1.6 [place] # (Auto) 0.8 Eos # (Auto) 0.1 Baso # (Auto) 0.0 Absolute Nucleated RBC 0.00 Nucleated RBC % 0.0 Sodium 132 L Potassium 3.5 Chloride 95 L Carbon Dioxide 27 Anion Gap 10.0 BUN 22 H Creatinine 0.6 Estimated GFR (MDRD) 97 Glucose 104 H Calcium 8.9 Total Bilirubin 1.1 H AST 20 ALT 19 Alkaline Phosphatase 51 Total Protein 7.2 Albumin 4.0 Globulin 3.2 Albumin/Globulin Ratio 1.3 Lipase 27 Urine Color YELLOW Urine Clarity CLEAR Urine pH 6.0 Ur Specific [place] 1.025 Urine Protein TRACE Urine Glucose (UA) NEGATIVE Urine Ketones 15 H Urine Occult Blood NEGATIVE Urine Nitrite NEGATIVE Urine Bilirubin NEGATIVE Urine Urobilinogen 0.2 (NORMAL) Ur Leukocyte Esterase NEGATIVE Ur Microscopic Review NOT INDICATED Urine Culture Comments NOT INDICATED - Rads (name of study) CT head Radiology: Final report received, EMP read contemporaneously, See rad report CTA neck Radiology: Final report received, EMP read contemporaneously, See rad report PD MEDICAL DECISION MAKING - ED course Complexity details: reviewed results, re-evaluated patient, considered differential, d/w patient ED course: 75-year-old female presents to the emergency department with what appears to be transient global amnesia today. Symptoms have all resolved. Currently asymptomatic. She did have 2 episodes in the emergency department which appeared initially to be a dropped beat on telemetry monitoring, but upon closer inspection it appears to be a premature atrial contraction that was not conducted with a QRS wave afterwards. Did discuss this with cardiology, Dr. Page who agrees. Dr. Page is at [facility] in [place] who reviewed the tracings. Recommend patient have an MRI as an outpatient. No MRI available here this weekend. No focal neurological deficits. Patient counseled regarding signs and symptoms for which I believe and urgent re-evaluation would be necessary. Patient with good understanding of and agreement to plan and is comfortable going home at this time This document was made in part using voice recognition software. While efforts are made to proofread this document, sound alike and grammatical errors may occur. Patient also counseled about the thyroid nodule and will follow up with her doctor for this IMPRESSION: 1.No hemodynamically significant arterial stenosis or occlusion within the neck. 2.Mildly tortuous courses of the extracranial vessels is nonspecific but can be seen in the setting of chronic systemic hypertension. 3.Moderate centrilobular emphysema. 4.Incidental left thyroid nodule. Recommend thyroid ultrasound for further evaluation, which may be obtained on an outpatient basis. IMPRESSION: 1.No acute intracranial abnormality. No hemodynamically significant intracranial arterial stenosis or occlusion. 2.Mild chronic microvascular ischemic changes. Departure - Departure Disposition: 01 Home, Self Care Clinical Impression: Transient global amnesia, Thyroid nodule Condition: Good Instructions: ED Altered Loc Follow-Up: Rema Choudhury ARNP [Primary Care Provider] - Within 1 week Comments: It appears that you had an episode of transient global amnesia today. Please follow-up with your doctor within the next week for a brain MRI to ensure there are no other acute abnormalities. These episodes are usually self-limited and usually do not recur though in a small percentage of patients they can recur. You also have a left thyroid nodule, recommended that you have a thyroid ultrasound as an outpatient. IMPRESSION: 1.No hemodynamically significant arterial stenosis or occlusion within the neck. 2.Mildly tortuous courses of the extracranial vessels is nonspecific but can be seen in the setting of chronic systemic hypertension. 3.Moderate centrilobular emphysema. 4.Incidental left thyroid nodule. Recommend thyroid ultrasound for further evaluation, which may be obtained on an outpatient basis. IMPRESSION: 1.No acute intracranial abnormality. No hemodynamically significant intracranial arterial stenosis or occlusion. 2.Mild chronic microvascular ischemic changes. Discharge Date/Time: 10/28/21 20:21 NIHSS - Time Time: 16:24 - Level of Consciousness Level of consciousness: (0) Alert, Keenly responsive LOC Questions: (0) Answers both Q's correct LOC Commands: (0) Performs both correctly - Gaze Best Gaze: (0) Normal - Visual Visual: (0) No loss - Facial Palsy Facial Palsy: (0) Normal, symmetrical movement - Motor Arms (both separate) Motor Arm (right): (0) No drift Motor Arm (left): (0) No drift - Motor Legs (both separate) Motor Leg (right): (0) No drift Motor Leg (left): (0) No drift - Limb Ataxia Limb Ataxia: (0) Absent - Sensory Sensory: (0) Normal - Best Language Best Language: (0) No aphasia - Dysarthria Dysarthria: (0) Normal - Extinction and Inattention (formally neg Extinction and inattention: (0) No abnormality - Total Score/Results Total Score/Result: 0
--- NOTE | 2021-10-28 18:26 | CT Report ---
PROCEDURE: ANGIO NECK W INDICATIONS: altered mental status, now resolved CONTRAST: IV CONTRAST: Optiray 320 ml: 80 PO CONTRAST: *NO PO CONTRAST TECHNIQUE: After the administration of intravenous contrast, 1.5 mm axial sections acquired from the aortic arch to the [place] of [place]. Coronal 3-D maximum intensity projection (MIP) and/or volume rendering ref ormats were then performed. For radiation dose reduction, the following was used: automated exposur e control, adjustment of mA and/or kV according to patient size. COMPARISON: None. FINDINGS: Image quality: Excellent. Carotid system: The great vessels demonstrate a conventional anatomy as they arise from the aortic a rch. Mild aortic atherosclerotic calcifications. The origins of the common carotid arteries appear pa tent. The common carotid arteries demonstrate normal calibers and courses. The bifurcation regions demonstrate very mild atherosclerotic calcifications without significant stenosis. The right internal carotid artery is tortuous. The left internal carotid artery demonstrates a normal course. No signif icant internal carotid artery stenosis. Posterior circulation: Calcified atherosclerotic plaque is seen at the origin of the right vertebral artery without significant stenosis. Minimal calcified atherosclerotic plaque is also seen at the or igin of the left vertebral artery. The remainder of the the extracranial vertebral arteries are paten t. The origins of the vertebral arteries appear patent. The more superior portions of the vertebral arteries demonstrate normal course and caliber. They join to form a normal appearing basilar artery. Soft tissues: Moderate centrilobular emphysema is seen in the included lung apices. Visualized neck soft tissues demonstrate no suspicious abnormalities. 1.8 cm hypodense left thyroid nodule. Bones: No suspicious bony lesions. Multilevel degenerative changes are seen in the included spine. IMPRESSION: 1.No hemodynamically significant arterial stenosis or occlusion within the neck. 2.Mildly tortuous courses of the extracranial vessels is nonspecific but can be seen in the setting o f chronic systemic hypertension. 3.Moderate centrilobular emphysema. 4.Incidental left thyroid nodule. Recommend thyroid ultrasound for further evaluation, which may be o btained on an outpatient basis. The estimate of stenosis included in the report of the imaging study was calculated using the NASCET method Reviewed by: Blane Constantino MD on 10/28/2021 6:25 PM PST Approved by: Blane Constantino MD on 10/28/2021 6:25 PM PST Station ID: [id number]
[2021-10-28 20:22] VITALS: BP 117/66
== END 2021-10-28 20:21 | disposition home or self-care (01) ==
LOC: ED 16:02
DX: G45.4 Transient global amnesia (principal); E04.1 Nontoxic single thyroid nodule; I10 Essential (primary) hypertension; Z87.891 Personal history of nicotine dependence
CPT/HCPCS: 36415; 70496; 70498; 80053; 81003; 83690; 85025; 93005; 99284; 99285; Q9967; 81001; 87086

== ENCOUNTER 2021-12-27 07:25 | Outpatient (CLI) | payer MEDICARE ==
[2021-12-27 14:44] LABS: BASOPHILS # (AUTO) 0.1 10^3/uL (0.0-0.1); EOSINOPHILS # (AUTO) 0.2 10^3/uL (0.0-0.7); EOSINOPHILS % (AUTO) 2.5 %; HCT - HEMATOCRIT 40.8 % (37.0-47.0); HGB - HEMOGLOBIN 13.4 g/dL (12.0-16.0); LYMPHOCYTES % (AUTO) 28.7 %; MEAN CORPUSCULAR HEMOGLOBIN 31.4 pg (27.0-31.0); MEAN CORPUSCULAR HGB CONC 32.8 g/dL (32.0-36.0); MEAN CORPUSCULAR VOLUME 95.6 fL (81.0-99.0); MEAN PLATELET VOLUME 9.8 fL (7.9-10.8); MONOCYTES # (AUTO) 0.7 10^3/uL (0.0-1.0); MONOCYTES % (AUTO) 9.8 %; NEUTROPHILS # (AUTO) 4.1 10^3/uL (1.5-6.6); NEUTROPHILS % (AUTO) 57.9 %; PLT - PLATELET COUNT 291 10^3/uL (130-450); RED BLOOD COUNT 4.27 10^6/uL (4.20-5.40); RED CELL DISTRIBUTION WIDTH 12.9 % (12.0-15.0); WHITE BLOOD COUNT 7.1 x10^3/uL (4.8-10.8)
[2021-12-27 20:31] LABS: ALBUMIN 4.1 g/dL (3.2-5.5); ALBUMIN/GLOBULIN RATIO 1.4 (1.0-2.2); ALKALINE PHOSPHATASE 55 IU/L (42-121); ALT ALANINE AMINOTRANSFERASE 17 IU/L (10-60); AST ASPARTATE AMINOTRANSFERASE 19 IU/L (10-42); BILIRUBIN,TOTAL 1.4 mg/dL (0.2-1.0); BUN - BLOOD UREA NITROGEN 24 mg/dL (6-20); CALCIUM 9.5 mg/dL (8.5-10.3); CARBON DIOXIDE - CO2 27 mmol/L (21-32); CHLORIDE 101 mmol/L (101-111); CHOL/HDL RATIO 2.9 (<4.4); CHOLESTEROL 159 mg/dL; CREATININE 0.6 mg/dL (0.4-1.0); GFR - MDRD 97 (>89); GLUCOSE 91 mg/dL (70-100); HDL CHOLESTEROL 55 mg/dL; LDL CHOLESTEROL,CALCULATED 86 mg/dL; LDL/HDL RATIO 1.6 (<4.4); POTASSIUM 3.8 mmol/L (3.5-5.0); SODIUM 137 mmol/L (135-145); TOTAL PROTEIN 7.1 g/dL (6.7-8.2); TRIGLYCERIDES 88 mg/dL; VLDL CHOLESTEROL 18 mg/dL
[2021-12-27 20:40] LABS: THYROID STIMULATING HORMONE 1.12 uIU/mL (0.34-5.60)
== END 2021-12-27 07:26 | disposition home or self-care (01) ==
LOC: LAB.S 07:25
PROVIDERS: ATTEND Registered Nurse
DX: E83.119 Hemochromatosis, unspecified (principal); I10 Essential (primary) hypertension; E78.5 Hyperlipidemia, unspecified; E11.9 Type 2 diabetes mellitus without complications
CPT/HCPCS: 36415; 80053; 80061; 81599; 83036; 83721; 84443; 85025

== ENCOUNTER 2023-03-14 07:25 | Outpatient (CLI) | payer MEDICARE ==
[2023-03-14 14:39] LABS: BASOPHILS # (AUTO) 0.1 10^3/uL (0.0-0.1); BASOPHILS % (AUTO) 0.9 %; EOSINOPHILS # (AUTO) 0.2 10^3/uL (0.0-0.7); HCT - HEMATOCRIT 42.2 % (37.0-47.0); HGB - HEMOGLOBIN 13.7 g/dL (12.0-16.0); LYMPHOCYTES % (AUTO) 24.4 %; MEAN CORPUSCULAR HEMOGLOBIN 31.1 pg (27.0-31.0); MEAN CORPUSCULAR HGB CONC 32.5 g/dL (32.0-36.0); MEAN CORPUSCULAR VOLUME 95.9 fL (81.0-99.0); MEAN PLATELET VOLUME 9.3 fL (7.9-10.8); MONOCYTES # (AUTO) 0.8 10^3/uL (0.0-1.0); MONOCYTES % (AUTO) 9.4 %; NEUTROPHILS % (AUTO) 62.1 %; PLT - PLATELET COUNT 313 10^3/uL (130-450); RED CELL DISTRIBUTION WIDTH 12.7 % (12.0-15.0); WHITE BLOOD COUNT 8.1 x10^3/uL (4.8-10.8)
[2023-03-14 14:47] LABS: ALBUMIN 3.9 g/dL (3.2-5.5); ALBUMIN/GLOBULIN RATIO 1.2 (1.0-2.2); ALKALINE PHOSPHATASE 55 IU/L (42-121); ALT ALANINE AMINOTRANSFERASE 17 IU/L (10-60); AST ASPARTATE AMINOTRANSFERASE 20 IU/L (10-42); BILIRUBIN,TOTAL 1.1 mg/dL (0.2-1.0); BUN - BLOOD UREA NITROGEN 19 mg/dL (6-20); CALCIUM 9.3 mg/dL (8.5-10.3); CARBON DIOXIDE - CO2 30 mmol/L (21-32); CHLORIDE 98 mmol/L (101-111); CHOL/HDL RATIO 3.4 (<4.4); CHOLESTEROL 181 mg/dL; CREATININE 0.6 mg/dL (0.4-1.0); GFR - MDRD 97 (>89); GLUCOSE 100 mg/dL (70-100); HDL CHOLESTEROL 54 mg/dL; LDL CHOLESTEROL,CALCULATED 91 mg/dL; LDL/HDL RATIO 1.7 (<4.4); POTASSIUM 3.9 mmol/L (3.5-5.0); SODIUM 134 mmol/L (135-145); TOTAL PROTEIN 7.2 g/dL (6.7-8.2); TRIGLYCERIDES 180 mg/dL; VLDL CHOLESTEROL 36 mg/dL
[2023-03-14 15:00] LABS: THYROID STIMULATING HORMONE 1.71 uIU/mL (0.34-5.60)
[2023-03-14 20:54] LABS: ESTIMATED AVERAGE GLUCOSE 126 mg/dL (70-100)
== END 2023-03-14 07:26 | disposition home or self-care (01) ==
LOC: LAB.S 07:25
PROVIDERS: ATTEND Registered Nurse
DX: Z51.81 Encounter for therapeutic drug level monitoring (principal); E83.119 Hemochromatosis, unspecified; I10 Essential (primary) hypertension; E78.5 Hyperlipidemia, unspecified; E11.9 Type 2 diabetes mellitus without complications; Z79.899 Other long term (current) drug therapy
CPT/HCPCS: 36415; 80053; 80061; 83036; 83721; 84443; 85025

== ENCOUNTER 2024-03-19 07:54 | Outpatient (CLI) | payer MEDICARE ==
[2024-03-19 14:59] LABS: BASOPHILS # (AUTO) 0.1 10^3/uL (0.0-0.1); BASOPHILS % (AUTO) 0.7 %; EOSINOPHILS # (AUTO) 0.2 10^3/uL (0.0-0.7); HCT - HEMATOCRIT 41.7 % (37.0-47.0); HGB - HEMOGLOBIN 13.5 g/dL (12.0-16.0); LYMPHOCYTES # (AUTO) 1.7 10^3/uL (1.5-3.5); LYMPHOCYTES % (AUTO) 20.6 %; MEAN CORPUSCULAR HGB CONC 32.4 g/dL (32.0-36.0); MEAN CORPUSCULAR VOLUME 95.9 fL (81.0-99.0); MEAN PLATELET VOLUME 9.1 fL (7.9-10.8); MONOCYTES # (AUTO) 0.7 10^3/uL (0.0-1.0); MONOCYTES % (AUTO) 8.9 %; NEUTROPHILS # (AUTO) 5.4 10^3/uL (1.5-6.6); NEUTROPHILS % (AUTO) 67.4 %; PLT - PLATELET COUNT 315 10^3/uL (130-450); RED BLOOD COUNT 4.35 10^6/uL (4.20-5.40); RED CELL DISTRIBUTION WIDTH 12.7 % (12.0-15.0); WHITE BLOOD COUNT 8.1 x10^3/uL (4.8-10.8)
[2024-03-19 15:31] LABS: ALBUMIN 4.2 g/dL (3.2-5.5); ALBUMIN/GLOBULIN RATIO 1.4 (1.0-2.2); ALKALINE PHOSPHATASE 62 IU/L (42-121); ALT ALANINE AMINOTRANSFERASE 10 IU/L (10-60); AST ASPARTATE AMINOTRANSFERASE 15 IU/L (10-42); BILIRUBIN,TOTAL 0.8 mg/dL (0.2-1.0); BUN - BLOOD UREA NITROGEN 18 mg/dL (6-20); CALCIUM 9.5 mg/dL (8.5-10.3); CARBON DIOXIDE - CO2 30 mmol/L (21-32); CHLORIDE 99 mmol/L (101-111); CHOL/HDL RATIO 4.7 (<4.4); CHOLESTEROL 219 mg/dL; CREATININE 0.6 mg/dL (0.6-1.3); GFR - MDRD 97 (>89); GLUCOSE 97 mg/dL (74-104); HDL CHOLESTEROL 47 mg/dL; LDL CHOLESTEROL,CALCULATED 139 mg/dL; POTASSIUM 3.9 mmol/L (3.5-4.5); SODIUM 135 mmol/L (135-145); TOTAL PROTEIN 7.1 g/dL (6.4-8.9); TRIGLYCERIDES 164 mg/dL; VLDL CHOLESTEROL 33 mg/dL
[2024-03-19 15:49] LABS: CREATININE,URINE 63.1 mg/dL; MICROALBUM/CREATININE RATIO,UR 28.5 ug/mg (<30.0); MICROALBUMIN,URINE 1.8 mg/dL
[2024-03-19 15:56] LABS: THYROID STIMULATING HORMONE 0.89 uIU/mL (0.34-5.60)
[2024-03-19 22:52] LABS: ESTIMATED AVERAGE GLUCOSE 117 mg/dL (70-100); HEMOGLOBIN A1c% 5.7 % (4.27-6.07)
== END 2024-03-19 07:55 | disposition home or self-care (01) ==
LOC: LAB.S 07:54
PROVIDERS: ATTEND Registered Nurse
DX: E11.9 Type 2 diabetes mellitus without complications (principal); Z13.228 Encounter for screening for other metabolic disorders; Z13.220 Encounter for screening for lipoid disorders; Z13.29 Encounter for screening for other suspected endocrine disorder; Z13.0 Encounter for screening for diseases of the blood and blood-forming organs and certain disorders involving the immune mechanism
CPT/HCPCS: 36415; 80053; 80061; 82043; 82570; 83036; 83721; 84443; 85025